=== PATIENT | male | born 1945 ===

== ENCOUNTER 2024-04-18 11:15 | Inpatient (IN) | payer OTHER ==
[~2024-04-18] VITALS: Ht 152.4 cm; Wt 75.7 kg
[2024-04-18] MEDS ORDERED: AVAPRO300 MG PO (11:56)
[2024-04-18] MEDS ORDERED: SYNTHROID137 MCG PO (11:57)
[2024-04-18] MEDS ORDERED: NORVASC5 MG PO (11:57)
[2024-04-18] MEDS ORDERED: ECOTRIN81 MG PO (11:57)
[2024-04-18] MEDS ORDERED: LIPITOR40 MG PO (11:58)
[2024-04-18] MEDS ORDERED: UROXATRAL10 MG PO (11:58)
[2024-04-18] MEDS ORDERED: TOPROL XL25 M1 PO (11:58)
[2024-04-18] MEDS ORDERED: PEPCID AC20 MG PO (11:58)
[2024-04-18 11:59] VITALS: BP 163/82
[2024-04-24] MEDS ORDERED: METRONIDAZOLE/SODIUM CHLORIDE 500 MG/100 ML PIGGYBACK IV ONE (14:37)
[2024-04-24] MEDS ORDERED: CEFTRIAXONE SODIUM 2,000 MG VIAL ONE (14:37)
[2024-04-24] MEDS ORDERED: MORPHINE SULFATE 4 MG/ML CARTRIDGE IV PRN (19:00)
[2024-04-24] MEDS ORDERED: RINGERS SOLUTION,LACTATED 1,000 ML IV SCH (19:00)
[2024-04-24] MEDS ORDERED: ONDANSETRON HCL 2 MG/ML VIAL IV PRN (19:00)
[2024-04-24] MEDS ORDERED: OxyCODONE HCL 5 MG TABLET (ROXICODONE) PO PRN (19:00)
[2024-04-24] MEDS ORDERED: DEXTROSE 50 % IN WATER 0.5 G/ML DISP.SYRIN IV PRN (19:00)
[2024-04-24] MEDS ORDERED: ACETAMINOPHEN 500 MG GEL..CAP PO SCH (20:00)
[2024-04-24] MEDS ORDERED: FAMOTIDINE/PF 20 MG/2 ML VIAL IV PUSH SCH (21:00)
[2024-04-24] MEDS ORDERED: SIMETHICONE 125 MG CAPSULE PO SCH (21:00)
[2024-04-24] MEDS ORDERED: MORPHINE SULFATE 4 MG/ML VIAL IV ONE (21:05)
[2024-04-25] LABS: HEMOGLOBIN 13.6 g/dL (13-16.00); MEAN CELL VOLUME 90.6 fL (80.0-100.00); MEAN CORPUSCULAR HEMOGLOBIN 30.7 pg (27.00-32.0); MEAN CORPUSCULAR HGB CONC 33.9 g/dl (32.0-36.0); PLATELET COUNT 204 K/uL (150-450); RED BLOOD COUNT 4.41 M/uL (4.00-6.00); RED CELL DISTRIBUTION WIDTH 13.3 % (11.5-14.5)
[2024-04-25] MEDS ORDERED: METOCLOPRAMIDE HCL 5 MG/ML VIAL ONE (00:29)
[2024-04-25] MEDS ORDERED: GABAPENTIN 300 MG CAPSULE PO ONE (00:30)
[2024-04-25] MEDS ORDERED: ACETAMINOPHEN 500 MG GEL..CAP PO ONE (00:30)
[2024-04-25] MEDS ORDERED: MORPHINE SULFATE 4 MG/ML VIAL IV ONE (00:30)
[2024-04-25] MEDS ORDERED: GABAPENTIN 300 MG CAPSULE PO SCH (01:00)
[2024-04-25] MEDS ORDERED: METOCLOPRAMIDE HCL 5 MG/ML VIAL IV SCH (01:00)
[2024-04-25 03:26] VITALS: BP 137/68; O2SAT 98
[2024-04-25] MEDS ORDERED: CELECOXIB 200 MG CAPSULE PO SCH (05:00)
[2024-04-25 07:08] LABS: HEMATOCRIT 39.1 % (39.0-48.0); HEMOGLOBIN 13.4 g/dL (13-16.00); MEAN CELL VOLUME 90.1 fL (80.0-100.00); MEAN CORPUSCULAR HEMOGLOBIN 30.9 pg (27.00-32.0); MEAN CORPUSCULAR HGB CONC 34.3 g/dl (32.0-36.0); PLATELET COUNT 195 K/uL (150-450); RED BLOOD COUNT 4.34 M/uL (4.00-6.00); RED CELL DISTRIBUTION WIDTH 13.1 % (11.5-14.5)
[2024-04-25 07:55] LABS: ALBUMIN 3.4 gm/dL (3.4-5.0); CALCIUM 8.3 mg/dL (8.5-10.1); CREATININE SERUM 1.09 mg/dL (0.70-1.30); GFR 65.6; MAGNESIUM 1.5 mg/dL (1.8-2.4); PHOSPHOROUS 2.7 mg/dL (2.5-4.9); POTASSIUM 4.53 mEq/L (3.5-5.1)
[2024-04-25 08:00] VITALS: BP 153/73; O2SAT 98
[2024-04-25] MEDS ORDERED: HYOSCYAMINE SULFATE 0.125 MG TAB.SUBL SL SCH (09:00)
[2024-04-25] MEDS ORDERED: LACTULOSE 20 G/30 ML BLIST.PACK PO SCH (09:00)
[2024-04-25] MEDS ORDERED: LACTOBACILLUS ACIDOPHILUS 1 CAP CAP PO SCH (09:00)
[2024-04-25 17:00] VITALS: BP 139/70; O2SAT 98
[2024-04-25] MEDS ORDERED: ENOXAPARIN SODIUM 40 MG/0.4 ML SYRINGE SUBCUTANEO SCH (17:00)
[2024-04-25] MEDS ORDERED: POLYETHYLENE GLYCOL 3350 17 GM BLIST.PACK PO SCH (17:00)
[2024-04-26 01:26] VITALS: BP 136/74; O2SAT 99
[2024-04-26] MEDS ORDERED: ENOXAPARIN SODIUM 40 MG/0.4 ML SYRINGE SUBCUTANEO SCH (09:00)
[2024-04-26 11:04] VITALS: BP 105/65; O2SAT 98
[2024-04-26] MEDS ORDERED: 0.9 % SODIUM CHLORIDE 500 ML IV ONE (14:30)
[2024-04-26 14:40] LABS: HEMATOCRIT 29.8 % (39.0-48.0); HEMOGLOBIN 10.3 g/dL (13-16.00); MEAN CORPUSCULAR HEMOGLOBIN 31.5 pg (27.00-32.0); MEAN CORPUSCULAR HGB CONC 34.6 g/dl (32.0-36.0); PLATELET COUNT 248 K/uL (150-450); RED BLOOD COUNT 3.27 M/uL (4.00-6.00); RED CELL DISTRIBUTION WIDTH 13.4 % (11.5-14.5)
[2024-04-26 14:55] VITALS: BP 104/62; O2SAT 100
[2024-04-26 15:49] LABS: ALBUMIN 3.3 gm/dL (3.4-5.0); BILIRUBIN TOTAL 0.9 mg/dL (0.3-1.2); CALCIUM 8.9 mg/dL (8.5-10.1); CREATININE SERUM 2.05 mg/dL (0.70-1.30); GFR 31.64; GLOBULINA 3.2 G/DL (2.4-3.5); POTASSIUM 4.55 mEq/L (3.5-5.1); TOTAL PROTEIN 6.5 gm/dL (6.4-8.2)
[2024-04-26] MEDS ORDERED: SOD FERRIC GLUC COMPLX/SUCROSE 125 MG in 0.9 % SODIUM CHLORIDE 100 ML IV SCH (17:00)
[2024-04-26 19:03] VITALS: BP 124/60; O2SAT 98
[2024-04-27] VITALS: BP 111/66; O2SAT 95
[2024-04-27 07:19] LABS: HEMATOCRIT 23.7 % (39.0-48.0); MEAN CELL VOLUME 91.8 fL (80.0-100.00); MEAN CORPUSCULAR HGB CONC 33.6 g/dl (32.0-36.0); PLATELET COUNT 198 K/uL (150-450); RED BLOOD COUNT 2.58 M/uL (4.00-6.00); RED CELL DISTRIBUTION WIDTH 13.5 % (11.5-14.5)
[2024-04-27 09:26] VITALS: BP 138/64; O2SAT 95
[2024-04-27] MEDS ORDERED: AMINOCAPROIC ACID 250 MG/ML VIAL IV NR (10:45)
[2024-04-27] MEDS ORDERED: SODIUM CHLORIDE 0.9% IV SCH (13:00)
[2024-04-27] MEDS ORDERED: AMINOCAPROIC ACID IV SCH (13:00)
[2024-04-27] MEDS ORDERED: MIDAZOLAM HCL 2 MG/2 ML VIAL IV PUSH ONE (15:00)
[2024-04-27] MEDS ORDERED: fentaNYL CITRATE 50 MCG/ML AMPUL IV PUSH ONE (15:00)
[2024-04-27] MEDS ORDERED: FUROsemide 20 MG/2 ML VIAL IV PRN (17:00)
[2024-04-27 19:24] VITALS: BP 98/50; O2SAT 96
[2024-04-28 00:30] VITALS: BP 138/65; O2SAT 100
[2024-04-28] MEDS ORDERED: ENOXAPARIN SODIUM 30 MG/0.3 ML SYRINGE SUBCUTANEO SCH (09:00)
[2024-04-28 12:10] VITALS: BP 132/66; O2SAT 95
[2024-04-28 12:21] LABS: HEMATOCRIT 25.9 % (39.0-48.0); MEAN CELL VOLUME 89.5 fL (80.0-100.00); MEAN CORPUSCULAR HGB CONC 34.6 g/dl (32.0-36.0); PLATELET COUNT 198 K/uL (150-450); RED CELL DISTRIBUTION WIDTH 14.7 % (11.5-14.5)
[2024-04-28 16:00] VITALS: BP 138/55; O2SAT 97
[2024-04-29] VITALS: BP 146/51; O2SAT 97
[2024-04-29 03:31] LABS: HEMOGLOBIN 10.1 g/dL (13-16.00); MEAN CELL VOLUME 88.8 fL (80.0-100.00); MEAN CORPUSCULAR HEMOGLOBIN 30.9 pg (27.00-32.0); MEAN CORPUSCULAR HGB CONC 34.8 g/dl (32.0-36.0); PLATELET COUNT 224 K/uL (150-450); RED BLOOD COUNT 3.27 M/uL (4.00-6.00); RED CELL DISTRIBUTION WIDTH 14.6 % (11.5-14.5)
[2024-04-29 04:42] LABS: ALBUMIN 2.6 gm/dL (3.4-5.0); BILIRUBIN TOTAL 1.54 mg/dL (0.3-1.2); CALCIUM 8.1 mg/dL (8.5-10.1); CREATININE SERUM 0.94 mg/dL (0.70-1.30); GLOBULINA 3.1 G/DL (2.4-3.5); POTASSIUM 4.1 mEq/L (3.5-5.1); TOTAL PROTEIN 5.7 gm/dL (6.4-8.2)
[2024-04-29 04:44] LABS: GFR 77.82
[2024-04-29 08:00] VITALS: BP 150/70; O2SAT 96
[2024-04-29 16:59] VITALS: BP 145/61; O2SAT 95
[2024-04-29] MEDS ORDERED: AA 2.36%/D6.8W/FAT/E-LYTES NO9 1,440 ML IV SCH (17:00)
[2024-04-29] MEDS ORDERED: hydrALAZINE HCL 20 MG VIAL IV PRN (17:00)
[2024-04-29 19:39] LABS: HEMATOCRIT 28.3 % (39.0-48.0); HEMOGLOBIN 9.8 g/dL (13-16.00); MEAN CORPUSCULAR HEMOGLOBIN 30.5 pg (27.00-32.0); MEAN CORPUSCULAR HGB CONC 34.7 g/dl (32.0-36.0); PLATELET COUNT 227 K/uL (150-450); RED BLOOD COUNT 3.22 M/uL (4.00-6.00)
[2024-04-29 20:04] LABS: CALCIUM 8.4 mg/dL (8.5-10.1); CHOL HDL RATIO 2.3 (0-5.0); CREATININE SERUM 0.81 mg/dL (0.70-1.30); GFR 92.4; POTASSIUM 3.74 mEq/L (3.5-5.1)
[2024-04-30] VITALS: BP 157/63; O2SAT 96
[2024-04-30 08:00] VITALS: BP 171/71; O2SAT 95
[2024-04-30 15:06] LABS: HEMATOCRIT 29.1 % (39.0-48.0); HEMOGLOBIN 9.9 g/dL (13-16.00); MEAN CORPUSCULAR HEMOGLOBIN 30.6 pg (27.00-32.0); PLATELET COUNT 241 K/uL (150-450); RED BLOOD COUNT 3.24 M/uL (4.00-6.00); RED CELL DISTRIBUTION WIDTH 14.4 % (11.5-14.5)
[2024-04-30 15:22] LABS: INR 1.12; PARTIAL THROMBOPLASTIN TIME 30.3 SECONDS (22.0-34.0); PROTHROMBIN TIME 12.1 SECONDS (9.0-11.5)
[2024-04-30 15:33] LABS: ALBUMIN 2.6 gm/dL (3.4-5.0); BILIRUBIN TOTAL 1.25 mg/dL (0.3-1.2); BILIRUBIN,CONJUGATED 0.38 mg/dL (0.0-0.2); BILIRUBIN,UNCONJUGATED 0.87 mg/dL (0.0-0.6); CALCIUM 8.2 mg/dL (8.5-10.1); CHOL HDL RATIO 2.4 (0-5.0); CREATININE SERUM 0.73 mg/dL (0.70-1.30); GFR 104.18; GLOBULINA 3.4 G/DL (2.4-3.5); POTASSIUM 3.4 mEq/L (3.5-5.1)
[2024-04-30 16:00] VITALS: BP 168/69; O2SAT 94
[2024-04-30] MEDS ORDERED: hydrALAZINE HCL 20 MG VIAL IV PRN (18:49)
[2024-04-30] MEDS ORDERED: MAGNESIUM SULFATE IN WATER 2 GM/50 ML PIGGYBAG IV NR (19:00)
[2024-04-30] MEDS ORDERED: POTASSIUM CHLORIDE IN WATER 100 ML IV NR (19:00)
[2024-05-01] VITALS: BP 158/77; O2SAT 94
[2024-05-01] MEDS ORDERED: LEVOTHYROXINE SODIUM 137 MCG TABLET PO SCH (06:00)
[2024-05-01 07:28] LABS: HEMATOCRIT 32.5 % (39.0-48.0); HEMOGLOBIN 10.6 g/dL (13-16.00); MEAN CORPUSCULAR HEMOGLOBIN 29.6 pg (27.00-32.0); MEAN CORPUSCULAR HGB CONC 32.5 g/dl (32.0-36.0); PLATELET COUNT 272 K/uL (150-450); RED BLOOD COUNT 3.57 M/uL (4.00-6.00); RED CELL DISTRIBUTION WIDTH 14.6 % (11.5-14.5)
[2024-05-01 08:00] VITALS: BP 155/74; O2SAT 95
[2024-05-01 08:20] LABS: ALBUMIN 2.6 gm/dL (3.4-5.0); BILIRUBIN TOTAL 1.19 mg/dL (0.3-1.2); CALCIUM 8.3 mg/dL (8.5-10.1); CREATININE SERUM 0.66 mg/dL (0.70-1.30); GFR 117.03; GLOBULINA 3.4 G/DL (2.4-3.5); MAGNESIUM 2.5 mg/dL (1.8-2.4); POTASSIUM 3.9 mEq/L (3.5-5.1)
[2024-05-01 08:38] LABS: PHOSPHOROUS 1.9 mg/dL (2.5-4.9)
[2024-05-01] MEDS ORDERED: AMLODIPINE BESYLATE 5 MG TABLET PO SCH (09:00)
[2024-05-01] MEDS ORDERED: METOPROLOL SUCCINATE 25 MG TAB.SR.24H PO SCH (09:00)
[2024-05-01] MEDS ORDERED: IRBESARTAN 300 MG TABLET PO SCH (09:00)
[2024-05-01] MEDS ORDERED: POTASSIUM PHOS,M-BASIC-D-BASIC 3 MM/ML VIAL IV SCH (13:00)
[2024-05-01 16:00] VITALS: BP 170/82; O2SAT 97
[2024-05-01] MEDS ORDERED: SODIUM CHLORIDE 0.45 % 1,000 ML IV SCH (18:15)
[2024-05-02 00:10] VITALS: BP 142/70; O2SAT 99
[2024-05-02 08:15] VITALS: BP 161/80; O2SAT 96
[2024-05-02 17:57] VITALS: BP 133/74; O2SAT 95
[2024-05-03 00:40] VITALS: BP 111/78; O2SAT 96
[2024-05-03 04:54] LABS: HEMATOCRIT 36.2 % (39.0-48.0); MEAN CELL VOLUME 90.4 fL (80.0-100.00); MEAN CORPUSCULAR HGB CONC 33.3 g/dl (32.0-36.0); PLATELET COUNT 322 K/uL (150-450); RED CELL DISTRIBUTION WIDTH 14.8 % (11.5-14.5)
[2024-05-03 05:55] LABS: ALBUMIN 2.1 gm/dL (3.4-5.0); BILIRUBIN TOTAL 2.61 mg/dL (0.3-1.2); CALCIUM 7.7 mg/dL (8.5-10.1); CREATININE SERUM 1.37 mg/dL (0.70-1.30); GFR 50.38; GLOBULINA 2.9 G/DL (2.4-3.5); PHOSPHOROUS 3.2 mg/dL (2.5-4.9); POTASSIUM 3.48 mEq/L (3.5-5.1)
[2024-05-03 08:10] VITALS: BP 118/76; O2SAT 98
[2024-05-03 14:59] LABS: URINE APPEARANCE Cloudy; URINE BILIRRUBIN Moderate (NEGATIVE); URINE BLOOD Large; URINE COLOR Orange; URINE GLUCOSE Negative (NEGATIVE); URINE KETONE Negative (NEGATIVE); URINE LEUKOCYTE Small; URINE NITRATE Positive
[2024-05-03 15:03] LABS: URINE RBC 118.1 uL (0.0-20.8); URINE WBC 41.3 uL (0.0-23.2)
[2024-05-03 15:59] LABS: URINE BACTERIA > 9821.5 uL (0.0-1933); URINE CAST > 21.83 uL (0.0-1.40); URINE EPITHELIAL CELLS > 201.7 uL (0.0-38.8); URINE MUCUS MODERATE; URINE PROTEIN 100 (NEGATIVE)
[2024-05-03 16:00] VITALS: BP 133/83; O2SAT 95
[2024-05-03] MEDS ORDERED: AMINO ACIDS 4.25 %/DEXTROSE 5% 1,000 ML PERIFERAL SCH (17:00)
[2024-05-03] MEDS ORDERED: VANCOMYCIN HCL 1,000 MG VIAL IV SCH (19:07)
[2024-05-03] MEDS ORDERED: MEROPENEM 500 MG/VIAL VIAL IV SCH (21:00)
[2024-05-04] VITALS (18 sets, daily range): BP systolic 46–122; BP diastolic 34–72; O2SAT 90–97
[2024-05-04 07:06] LABS: ALBUMIN 1.9 gm/dL (3.4-5.0); BILIRUBIN TOTAL 3.17 mg/dL (0.3-1.2); CALCIUM 7.6 mg/dL (8.5-10.1); CREATININE SERUM 1.88 mg/dL (0.70-1.30); GFR 34.97; GLOBULINA 3.1 G/DL (2.4-3.5); MAGNESIUM 2.2 mg/dL (1.8-2.4); PHOSPHOROUS 4.5 mg/dL (2.5-4.9); POTASSIUM 4.16 mEq/L (3.5-5.1)
[2024-05-04 07:16] LABS: C-REACTIVE PROTEIN 30.8 MG/DL (0.00-0.29)
[2024-05-04 07:59] LABS: HEMATOCRIT 34.7 % (39.0-48.0); HEMOGLOBIN 11.3 g/dL (13-16.00); MEAN CELL VOLUME 92.5 fL (80.0-100.00); MEAN CORPUSCULAR HGB CONC 32.4 g/dl (32.0-36.0); PLATELET COUNT 268 K/uL (150-450); RED BLOOD COUNT 3.76 M/uL (4.00-6.00); RED CELL DISTRIBUTION WIDTH 15.1 % (11.5-14.5)
[2024-05-04] MEDS ORDERED: ONDANSETRON HCL 2 MG/ML VIAL IV PRN (13:15)
[2024-05-04] MEDS ORDERED: DOPamine HCL IN DEXTROSE 5 % 250 ML IV SCH (16:00)
[2024-05-04] MEDS ORDERED: PROPOFOL 100 ML IV SCH (16:00)
[2024-05-04 16:10] LABS: ABG PO2 93.2 mmHg (80-100); BASE EXCESS -11.9 mmol/l; BICARBONATE 24.5 mmol/l (23-25); SaO2 85.9 %; Tco2 28.5 mmol/l
[2024-05-04] MEDS ORDERED: SODIUM BICARBONATE 100 MEQ in DEXTROSE 5 % IN WATER 1,000 ML IV SCH (16:30)
[2024-05-04] MEDS ORDERED: ANIDULAFUNGIN 100 MG VIAL IV NR (17:00)
[2024-05-04] MEDS ORDERED: SODIUM BICARBONATE 1 MEQ/ML DISP.SYRIN 50ML IV STA (17:08)
[2024-05-04] MEDS ORDERED: MIDAZOLAM HCL 50 MG in 0.9 % SODIUM CHLORIDE 50 ML IV SCH (17:45)
[2024-05-04 18:19] LABS: D DIMER 12.12 MG/L; INR 1.29; PARTIAL THROMBOPLASTIN TIME 32.2 SECONDS (22.0-34.0); PROTHROMBIN TIME 13.8 SECONDS (9.0-11.5)
[2024-05-04 18:29] LABS: HEMATOCRIT 31.4 % (39.0-48.0); HEMOGLOBIN 10.3 g/dL (13-16.00); MEAN CELL VOLUME 93.4 fL (80.0-100.00); MEAN CORPUSCULAR HEMOGLOBIN 30.7 pg (27.00-32.0); MEAN CORPUSCULAR HGB CONC 32.9 g/dl (32.0-36.0); RED BLOOD COUNT 3.36 M/uL (4.00-6.00); RED CELL DISTRIBUTION WIDTH 15.5 % (11.5-14.5)
[2024-05-04 18:30] LABS: ALBUMIN 1.6 gm/dL (3.4-5.0); BILIRUBIN TOTAL 3.14 mg/dL (0.3-1.2); CALCIUM 7.2 mg/dL (8.5-10.1); CREATININE SERUM 2.79 mg/dL (0.70-1.30); GFR 22.17; GLOBULINA 2.9 G/DL (2.4-3.5); PLATELET COUNT 275 K/uL (150-450); POTASSIUM 4.61 mEq/L (3.5-5.1); TOTAL PROTEIN 4.5 gm/dL (6.4-8.2)
[2024-05-04 18:35] LABS: CKMB 14.4 NG/ML (0.5-3.6)
[2024-05-04 20:02] LABS: ABG PO2 92.2 mmHg (80-100); BASE EXCESS -10.6 mmol/l; BICARBONATE 23.4 mmol/l (23-25); Tco2 26.5 mmol/l
[2024-05-04 20:20] LABS: ABG PH 6.892 (7.35-7.45); ABG pCO2 130.6 mmHg (35-45); o2 100 %
[2024-05-04 20:21] LABS: allen test SATISFACTORY; puncture site RADIAL RIGHT
[2024-05-04] MEDS ORDERED: NOREPINEPHRINE BITARTRATE 8 MG in DEXTROSE 5 % IN WATER 250 ML IV SCH (21:00)
[2024-05-04 21:11] LABS: ABG PH 6.987 (7.35-7.45); ABG pCO2 100.1 mmHg (35-45)
[2024-05-04 21:12] LABS: allen test SATISFACTORY; o2 100 %; puncture site RADIAL RIGHT
[2024-05-05] VITALS (21 sets, daily range): BP systolic 73–155; BP diastolic 51–99; O2SAT 70–100
[2024-05-05 08:03] LABS: ALBUMIN 1.4 gm/dL (3.4-5.0); BILIRUBIN TOTAL 4.05 mg/dL (0.3-1.2); CALCIUM 6.6 mg/dL (8.5-10.1); CREATININE SERUM 3.32 mg/dL (0.70-1.30); GFR 18.14; GLOBULINA 2.6 G/DL (2.4-3.5); POTASSIUM 3.99 mEq/L (3.5-5.1)
[2024-05-05] MEDS ORDERED: PHENYLEPHRINE HCL 20 MG in 0.9 % SODIUM CHLORIDE 250 ML IV SCH (08:45)
[2024-05-05] MEDS ORDERED: POLYVINYL ALCOHOL 15 ML DROPS OP SCH (09:00)
[2024-05-05] MEDS ORDERED: CHLORHEXIDINE GLUCONATE 15ML BRUSH KIT MM SCH (09:00)
[2024-05-05 09:02] LABS: ABG PO2 65.1 mmHg (80-100); BASE EXCESS -4.4 mmol/l; BICARBONATE 26.4 mmol/l (23-25); SaO2 84.2 %; Tco2 28.8 mmol/l
[2024-05-05 09:57] LABS: ABG PH 7.153 (7.35-7.45); ABG pCO2 77.1 mmHg (35-45); allen test SATISFACTORY; o2 100 %; puncture site RADIAL RIGHT
[2024-05-05] MEDS ORDERED: PHENYLEPHRINE HCL 80 MG in 0.9 % SODIUM CHLORIDE 1,000 ML IV SCH (11:45)
[2024-05-05 14:10] LABS: BASE EXCESS -7.9 mmol/l; BICARBONATE 25.7 mmol/l (23-25); SaO2 60.8 %; Tco2 28.7 mmol/l
[2024-05-05 14:21] LABS: ABG PH 7.027 (7.35-7.45); ABG PO2 49.1 mmHg (80-100); allen test SATISFACTORY; puncture site RADIAL LEFT
[2024-05-05 14:22] LABS: o2 100 %
[2024-05-05] MEDS ORDERED: ANIDULAFUNGIN 100 MG VIAL IV SCH (17:00)
[2024-05-05] MEDS ORDERED: VANCOMYCIN HCL 1,000 MG VIAL IV SCH (19:07)
[2024-05-05] MEDS ORDERED: LINEZOLID IN DEXTROSE 5% 300 ML IV SCH (22:25)
[2024-05-05] MEDS ORDERED: METRONIDAZOLE/SODIUM CHLORIDE 100 ML IV SCH (22:26)
[2024-05-06] MEDS ORDERED: MEROPENEM 500 MG/VIAL VIAL IV SCH (09:00)
== END 2024-05-05 21:21 | disposition expired | DRG 329 ==
LOC: O/R 04-24 09:27 → SURH 04-24 09:27 → LDR 04-24 11:15 → SURH 04-24 23:05 → ICU 05-04 13:46
PROVIDERS: Internal Medicine; Internal Medicine Infectious Disease; Internal Medicine Nephrology; Surgery; ADMIT Colon & Rectal Surgery; ATTEND Colon & Rectal Surgery
PROC: 0DBP4ZZ Excision of Rectum, Percutaneous Endoscopic Approach (ICD-10-PCS; 2024-04-24)
PROC: 0TQB4ZZ Repair Bladder, Percutaneous Endoscopic Approach (ICD-10-PCS; 2024-04-24)
PROC: 5A1945Z Respiratory Ventilation, 24-96 Consecutive Hours (ICD-10-PCS; 2024-04-24)
PROC: 0DTN4ZZ Resection of Sigmoid Colon, Percutaneous Endoscopic Approach (ICD-10-PCS; principal; 2024-04-24 13:30)
PROC: BW21ZZZ Computerized Tomography (CT Scan) of Abdomen and Pelvis (ICD-10-PCS; 2024-04-26)
PROC: 0T9B30Z Drainage of Bladder with Drainage Device, Percutaneous Approach (ICD-10-PCS; 2024-04-27)
PROC: 0H97X0Z Drainage of Abdomen Skin with Drainage Device, External Approach (ICD-10-PCS; 2024-04-27)
PROC: 30243N1 Transfusion of Nonautologous Red Blood Cells into Central Vein, Percutaneous Approach (ICD-10-PCS; 2024-04-27)
PROC: 0D9670Z Drainage of Stomach with Drainage Device, Via Natural or Artificial Opening (ICD-10-PCS; 2024-04-29)
PROC: 02HV33Z Insertion of Infusion Device into Superior Vena Cava, Percutaneous Approach (ICD-10-PCS; 2024-04-30)
PROC: BW21YZZ Computerized Tomography (CT Scan) of Abdomen and Pelvis using Other Contrast (ICD-10-PCS; 2024-05-03)
PROC: B24BYZZ Ultrasonography of Heart with Aorta using Other Contrast (ICD-10-PCS; 2024-05-03)
PROC: 0BH18EZ Insertion of Endotracheal Airway into Trachea, Via Natural or Artificial Opening Endoscopic (ICD-10-PCS; 2024-05-04)
DX: K57.20 Diverticulitis of large intestine with perforation and abscess without bleeding (principal); A41.9 Sepsis, unspecified organism; J96.90 Respiratory failure, unspecified, unspecified whether with hypoxia or hypercapnia; T81.12XA Postprocedural septic shock, initial encounter; N17.9 Acute kidney failure, unspecified; N32.1 Vesicointestinal fistula; N99.72 Accidental puncture and laceration of a genitourinary system organ or structure during other procedure; N39.0 Urinary tract infection, site not specified; E87.20 Acidosis, unspecified; T81.44XA Sepsis following a procedure, initial encounter; R32 Unspecified urinary incontinence; D64.9 Anemia, unspecified; E87.6 Hypokalemia; E03.9 Hypothyroidism, unspecified; R33.9 Retention of urine, unspecified; I95.9 Hypotension, unspecified; I10 Essential (primary) hypertension; B96.20 Unspecified Escherichia coli [E. coli] as the cause of diseases classified elsewhere; B96.1 Klebsiella pneumoniae [K. pneumoniae] as the cause of diseases classified elsewhere